=== PATIENT | male | born 1940 | race Caucasian/White ===

== ENCOUNTER 2016-03-03 03:22 | Inpatient (IN) | payer OTHER ==
[~2016-03-03] VITALS: Ht 177.8 cm; Wt 136.1 kg
[2016-03-03] VITALS (7 sets, daily range): BP systolic 106–152; BP diastolic 57–76
--- NOTE | ~2016-03-03 | EKG ---
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
--- NOTE | ~2016-03-03 | CATHLAB ---
[facility] [place] [address] INVASIVE PROCEDURE REPORT Name: MITCHMARJAN NICOLE Room #: 217-P [facility] IN M.R.#: [id number] Admission: 03/03/16 Attend Phys: Dg Wan, Discharge: Date of : 42 Date of Service: 03/03/16 1330 Report #: [id number] THIS REPORT FOR: //name// CC: Dg LUND PROCEDURES: Left ventriculography, coronary angiography, abdominal aortography, PTCA stent to the RCA, drug-eluting, bilateral lower extremity runoff. DESCRIPTION OF PROCEDURE: The patient brought to the catheterization lab having accelerating anginal pattern, here in atrial fibrillation, which has resolved. Had arm pain and chest pain consistent with anginal symptoms. This was during the night. Troponin was 0.05. Also had a right lower extremity diabetic foot ulcer, which is healing. Right groin prepped and draped in sterile manner and 1% Xylocaine was used for local anesthesia and Versed was given for conscious sedation. A 6-Mongolian sheath in the right femoral artery. Straight pigtail catheter performed a single JC ventriculogram and LV function was preserved and AP aortogram. No aneurysm. Renal arteries were patent with mild disease. FL4 for the left coronary system, FR4 for the right coronary system and FR4 for a BAILEY to LAD graft. There was evidence of a high grade . There was a dominant right. This was a single-vessel runoff with a BAILEY to an LAD, which was occluded proximally, 30% and 40% irregularities in the circ OM and the diagonal system and in the large dominant right, previously placed proximal stent and the distal portion of the stent severely diseased within the mid vessel and just distal to this is 99% long lesion. It is a dominant vessel. I utilized a JR4 guide, a 0.014 Luge wire and a 2.5 x 20 balloon to dilate overlapping this area; some difficulty initially crossing. I then exchanged over the wire and magnet for a 2.75 x 30 Resolute drug-eluting stent, deployed at 14 atmospheres and post-dilated 20 atmospheres within the stent for 30 seconds. Final result was excellent, with ADRIENNE grade 3 flow. No dissection or thrombus formation. Stent appeared to be well opposed with those high atmospheres. I then utilized a JR4 guide to engage the left iliac system because of the history of diabetic disease and the right femoral sheath was also injected. There was wide patency of the iliofemoral system. SFA was widely patent and giving rise to a 3-vessel runoff with mild disease proximally. I did not go below the mid calf. No significant occlusive disease noted to that point. The patient tolerated well. Vascular sheath was secured. Heparin and Integrilin boluses were given and Effient p.o. load for the drug-eluting coronary stent. Stable upon transfer, without hematoma formation, to CV holding. IV Lopressor was given for some borderline tachycardia, but he has converted from AFib to sinus rhythm. HEMODYNAMICS: Aortic 126/74, LV 130/24. IMPRESSION: 1. Percutaneous transluminal coronary angioplasty stent of high-grade long mid [facility] [address] [place] [address] INVASIVE PROCEDURE REPORT Name: MARJAN MEYER Room #: 217-P [facility] IN M.R.#: [id number] Admission: 03/03/16 Attend Phys: Dg Wan, Discharge: Date of : 42 Date of Service: 03/03/16 1330 Report #: [id number] right coronary artery lesion, dominant vessel, distal in-stent restenosis, with the high-grade lesion not previously stented with a 2.75 x 30 Resolute stent, drug eluting to 3.4 mm in size, ADRIENNE grade 3 flow. 2. Left main with mild disease. 3. Left anterior descending proximally occludes. 4. The left internal mammary artery to the left anterior descending was intact and extends around the apex with well-preserved vessel. 5. Diagonal system with 30% irregularities. 6. Circumflex obtuse marginal with 30%-40% proximal circumflex and obtuse marginal lesions. 7. Normal left ventricular size and systolic function, ejection fraction 50%-55%. 8. Abdominal aorta intact. 9. Bilateral common iliacs are mildly diseased. 10. Bilateral common femoral with 20%-30% irregularities. 11. Bilateral superficial femoral arteries have mild calcification and plaquing, but no occlusive disease, giving rise to 3-vessel runoff at the knee. I did not evaluate the significant below-knee disease, but it appears to be patent proximally. 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 load was given. He is hemodynamically stable and pain-free upon transfer. <ELECTRONICALLY SIGNED> By: Dg Wan MD, [facility] 03/04/16 0935 1330 1420 Dg Wan MD, FACC /nt
--- NOTE | ~2016-03-03 | EKG ---
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1940 Requested By: Dg Wan Order Number: [id number] MD: Juan F Ortiz Measurements Intervals [place] Rate: 73 P: 60 [place]: 150 QRS: 81 QRSD: 92 T: 97 QT: 393 QTc: 433 Interpretive Statements Sinus rhythm Borderline right axis deviation Low voltage, precordial leads Nonspecific T abnormalities, lateral leads Compared to ECG 03/03/2016 03:28:48 No significant changes Electronically Signed On 03-03-2016 17:08:32 TURN LASTER by Juan F Ortiz [email or web address] <ELECTRONICALLY SIGNED> By: Juan F Ortiz MD 03/03/16 1708 1400 1400 Juan F Ortiz MD /EPI
--- NOTE | ~2016-03-03 | H ---
[facility] [place] [address] HISTORY AND PHYSICAL Name: MARJAN MEYER Room #: 217-P ADM IN M.R.#: [id number] Admission: 03/03/16 Attend Phys: Dg Wan MD, Discharge: Date of : 42 Report #: [id number] THIS REPORT FOR: //name// CC: Dg Turcios Parker LUND DATE OF SERVICE: 03/03/2016 HISTORY OF PRESENT ILLNESS: The patient is a 75-year-old male well known to myself. Admitted with awakening last night with some substernal chest discomfort, but more of a left arm discomfort, associated with some shortness of breath and irregular heartbeat. It sounds like someone came to the emergency room and found to have AFib, rapid ventricular response and some relief with nitro from the arm pain. He had been feeling well otherwise, but having some progressive fatigue, shortness of breath. His bypass surgery dates back to 1999; it looks like there was a stent to the RCA prior to the bypass and then possibly just a single-vessel bypass which was a BAILEY to an LAD, but I will need to try to find old records. This is now 15-16 years ago. He has preserved LV function. I have a negative nuclear stress test done in our office in November 2014. He has been compliant with his medications, but always has fought this weight and was considering [employer]. He has had preserved LV function. He has been compliant with his medications, just not compliant with diet or exercise. The EKG had AFib with RVR, rates improved, nonspecific ST abnormalities are noted but no certainly acute ____ injury. MEDICATIONS: Have been aspirin, fish oil, vitamin D, metformin 1000 mg b.i.d., glipizide 2.5 mg, gabapentin, Lipitor 80 mg, Bystolic 10 mg and fenofibrate which we did discontinue last visit. PAST MEDICAL HISTORY: Positive for coronary artery disease with CABG and stent, hypertension, hypercholesterolemia, obesity, DJD, carotid disease, hypertriglyceridemia, COPD, nasal surgery and knee replacement, bilateral. FAMILY HISTORY: Strongly positive including a brother, father and mother all with premature CAD. SOCIAL HISTORY: Prior tobacco over 10 years ago. No significant alcohol. Moderate caffeine. He is . He is retired. ALLERGIES: CODEINE, EPINEPHRINE AND NIACIN. REVIEW OF SYSTEMS: Negative except for progressive dyspnea and some nocturia. [facility] [address] [place] [address] HISTORY AND PHYSICAL Name: MARJAN MEYER Room #: 217-P ADM IN M.R.#: [id number] Admission: 03/03/16 Attend Phys: Dg Wan MD, Discharge: Date of : 42 Report #: [id number] LABORATORY DATA: Potassium is 4.3, creatinine 1.0. Troponin was 0.05. H and H are 13.3 and 40.1 and white count was 12.9. RADIOLOGICAL STUDIES: Chest x-ray does reveal some questionable cephalization. PHYSICAL EXAMINATION: HEMODYNAMICS: Pulse is 80s and irregular, blood pressure 106/60. HEENT: Eyes reveal xanthelasmas. Pharynx is clear. NECK: Shows preserved upstrokes without JVD or bruits. LUNGS: A few basilar crackles are noted, but diminished breath sounds. CARDIOVASCULAR: Irregularly irregular, S1, S2 distant. ABDOMEN: Obese, nontender. EXTREMITIES: Reveal trace of edema with venous stasis, mild. NEUROLOGIC: Intact. MUSCULOSKELETAL: No gross joint deformity. ASSESSMENT: 1. Accelerating angina. 2. Hypertension. 3. Hypercholesterolemia. 4. Recent-onset atrial fibrillation. 5. Obesity. 7. Chronic obstructive pulmonary disease. RECOMMENDATIONS AND PLAN: Currently IV is out, rate is controlled. Continue with Bystolic, beta-gin, an aspirin and a statin. We will proceed to the catheterization lab to delineate the anatomy. Based on his risk factors, obesity and some noncompliance and the need to delineate this anatomy and then we will treat the AFib accordingly with anticoagulation and rate control. We will repeat an echo Doppler. <ELECTRONICALLY SIGNED> By: Dg Wan MD, FACC 03/04/16 0936 1019 1045 Dg Wan MD, FACC /nt
--- NOTE | ~2016-03-03 | EKG ---
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[place] : 1940 Requested By: Nichol Walsh Order Number: [id number] MD: Juan F Ortiz Measurements Intervals [place] Rate: 147 P: 123 [place]: 97 QRS: 76 QRSD: 82 T: 89 QT: 315 QTc: 493 Interpretive Statements Supraventricular tachycardia, possible atrial flutter Low voltage, precordial leads Borderline T wave abnormalities No previous ECG available for comparison Electronically Signed On 03-03-2016 8:23:39 CMO & PRESIDENT by Juan F Ortiz [email or web address] <ELECTRONICALLY SIGNED> By: Juan F Ortiz MD 03/03/16 0823 7 Juan F Ortiz MD /ANGEL
--- NOTE | ~2016-03-03 | 2DMMODE ---
[facility] [place] [address] 2 D/M-MODE ECHOCARDIOGRAM Name: MITCHMARJAN NICOLE Room #: 217-P [facility] IN M.R.#: [id number] Admission: 03/03/16 Attend Phys: Dg Wan, Discharge: Date of : 42 Date of Service: 03/03/16 1538 Report #: [id number] THIS REPORT FOR: //name// Transthoracic Echocardiography Ordering physician: Maria Luisa Barros Referring physician: Maria Luisa Barros Supervisor Sanding: TAMMIE Bryant Indications/History: CAD, CABG, Chest pain, HTN, HLP. BP: 121 / HR: 74bpm Height: 70in Weight: 284.4lb 54 Study data: M-mode, complete 2D, complete spectral Doppler, and color Doppler. Location: Bedside. Routine. Image quality was adequate. The study was technically limited due to poor acoustic window availability, restricted patient mobility, and body habitus. Intravenous contrast (Definity) was administered. 2D measurements Normal Normal LVID ED 44.1mm 36-57 IVS ED 10.1mm 6-11 LVID ES 31.8mm 23-40 LVPW ED 9.7mm 6-11 LA volume index 16-28 AoRoot diam ED 29.3mm 21-37 LVOT diameter 19mm 18-23 Findings: Left ventricle: The cavity size was normal. Wall thickness was normal. Systolic function was normal. The estimated ejection fraction was in the range of 50% to 55%. Wall motion was normal. Right ventricle: The cavity size was normal. Systolic function was normal. Right atrium: The atrium was dilated. Left atrium: The atrium was dilated. Aortic valve: Not well visualized. Mildly sclerotic leaflets. Doppler: There was no stenosis. No regurgitation. Peak velocity: 125.7cm/s (S). [facility] [address] [place] [address] 2 D/M-MODE ECHOCARDIOGRAM Name: MARJAN MEYER Room #: 217-P [facility] IN Marg[place]#: [id number] Admission: 03/03/16 Attend Phys: Dg EricksonSalazar Soco, Discharge: Date of : 42 Date of Service: 03/03/16 1538 Report #: [id number] Mitral valve: The valve appears to be grossly normal. Doppler: There was no evidence for stenosis. Mild regurgitation. Peak E-wave velocity: 100.9cm/s. Peak gradient: 4.1mm Hg (D). Peak A-wave velocity: 52.4cm/s. Tricuspid valve: Structurally normal valve. Doppler: There was no evidence for stenosis. Mild regurgitation. Regurgitant peak velocity: 299.9cm/s. Peak RV-RA gradient: 36mm Hg (S). Pulmonic valve: Structurally normal valve. Doppler: There was no evidence for stenosis. Trivial regurgitation. Pericardium: There was no pericardial effusion. Aorta: Aortic root: The aortic root was normal in size. Pulmonary artery: Systolic pressure was estimated to be 45mm Hg. Diastolic function: The study is not technically sufficient to allow evaluation of LV diastolic function. Systemic veins: Inferior vena cava: The vessel was normal in size; the respirophasic diameter changes were in the normal range (= 50%). Conclusions Technically difficult study. 1. Left ventricle: Systolic function was normal. The estimated ejection fraction was in the range of 50% to 55%. Wall motion was normal. 2. Aortic valve: Not well visualized. Mildly sclerotic leaflets. There was no stenosis. No regurgitation. 3. Mitral valve: The valve appears to be grossly normal. Mild regurgitation. 4. Pericardium, extracardiac: There was no pericardial effusion. 5. Pulmonary arteries: Systolic pressure was estimated to be 45mm Hg. <ELECTRONICALLY SIGNED> By: Heber Byrd MD, [facility] 03/03/16 1636 1538 35 Heber Byrd MD, [facility] /[place]
[~2016-03-03 03:22] MED LIST: ALLOPURINOL 30300 M2 PO; ASPIRIN81 M2 PO; ATENOLOL 50MG T50 M1 PO; CALCIUM STOOL240 MG PO; COUMADIN 5 MG TA5 M1 PO; ENOXAPARIN150 MG/11 SUBQ; GLIPIZIDE 5 MG T5 MG PO; GLUCOPHAGE1000 MG PO; LIVALO4 MG PO; MOBIC15 MG PO; MULTI VITAMIN; PERCOCET 7.5-31 EACH PO; TRILIPIX135 MG PO
[2016-03-03] MEDS ORDERED: GLIPIZIDE 10 MG10 MG PO (03:34)
[2016-03-03] MEDS ORDERED: ASPIRIN325 PO (03:37)
[2016-03-03] MEDS ORDERED: PIOGLITAZONE15 MG PO (03:39)
[2016-03-03] MEDS ORDERED: CYMBALTA30 MG PO (03:39)
[2016-03-03 03:40] LABS: ABSOLUTE NEUTROPHILS 9.3 thou/uL (1.4-8.2); BASOPHILS 0.6 % (0.0-2.0); HEMATOCRIT 40.1 % (42.0-52.0); HEMOGLOBIN 13.3 gm/dL (14.0-18.0); LYMPHOCYTES 17.6 % (24.0-44.0); MCH 29.7 pg (26.0-34.0); MCHC 33.3 % (28.0-37.0); MCV 89.3 fL (80.0-100.0); MONOCYTES 7.3 % (1.0-8.0); PLATELET COUNT 204 thou/uL (150-400); POLYS 72.5 % (36.0-66.0); RBC 4.49 mil/uL (4.50-6.00); WBC 12.9 thou/uL (4.0-11.0)
[2016-03-03] MEDS ORDERED: AVAPRO300 MG PO (03:40)
[2016-03-03] MEDS ORDERED: NEURONTIN 300300 M1 PO (03:41)
[2016-03-03] MEDS ORDERED: BYSTOLIC 5 MG5 M1 PO (03:41)
[2016-03-03] MEDS ORDERED: LIPITOR 20 MG T20 M1 PO (03:41)
[2016-03-03] MEDS ORDERED: CO Q-10100 MG PO (03:41)
[2016-03-03] MEDS ORDERED: FISH OIL 1,0001 EAC5 PO (03:42)
[2016-03-03] MEDS ORDERED: MYRBETRIQ50 MG PO (03:42)
[2016-03-03] MEDS ORDERED: VITAMIN D2000 UNIT PO (03:42)
[2016-03-03] MEDS ORDERED: ALBUTEROL2.5 MG/0.5 INH (03:43)
[2016-03-03] MEDS ORDERED: BREO ELLIPTA 11 EACH IH (03:43)
[2016-03-03] MEDS ORDERED: SPIRIVA INH (03:43)
[2016-03-03 03:44] LABS: MANUAL DIFF NO
[2016-03-03] MEDS ORDERED: FLOMAX0.4 MG PO (03:44)
[2016-03-03] MEDS ORDERED: LASIX 40 MG TAB40 M2 PO (03:44)
[2016-03-03] MEDS ORDERED: KLOR-CON 1010 MEQ PO (03:45)
[2016-03-03 03:46] LABS: CALCIUM 9.1 mg/dL (8.5-10.1); POTASSIUM 4.3 mmol/L (3.5-5.1)
[2016-03-03 03:55] LABS: APTT 28.9 Seconds (24.5-32.8); INR 1.1; PROTIME 11.4 Seconds (9.3-11.4); TROPONIN-I 0.05 ng/mL (<0.04-0.07)
[2016-03-03 04:06] LABS: LARGE PLATELETS FEW
[2016-03-04 00:03] VITALS: BP 133/70
[2016-03-04 03:59] LABS: HEMATOCRIT 39.2 % (42.0-52.0); HEMOGLOBIN 12.9 gm/dL (14.0-18.0); MCH 29.7 pg (26.0-34.0); MCHC 32.8 % (28.0-37.0); MCV 90.6 fL (80.0-100.0); RBC 4.33 mil/uL (4.50-6.00); WBC 15.6 thou/uL (4.0-11.0)
[2016-03-04 04:05] LABS: CREATININE 1.1 mg/dL (0.6-1.3); POTASSIUM 4.5 mmol/L (3.5-5.1); TROPONIN-I 0.13 ng/mL (<0.04-0.07)
[2016-03-04 04:13] LABS: CHOLESTEROL 147 mg/dL (<200); HDL CHOLESTEROL 33 mg/dL (>40); LDL CHOLESTEROL 86 mg/dL (<100); TC:HDL 4.5 Ratio (Not establshd); TRIGLYCERIDE 144 mg/dL (<150); VLDL 29 mg/dL (<40)
[2016-03-04 04:15] LABS: SERUM ASSESSMENT Clear
[2016-03-04 04:43] VITALS: BP 148/79
[2016-03-04] MEDS ORDERED: LIPITOR 20 MG T20 M1 PO (07:47)
[2016-03-04] MEDS ORDERED: ASPIRIN325 PO (07:47)
[2016-03-04] MEDS ORDERED: EFFIENT10 MG PO (07:47)
[2016-03-04] MEDS ORDERED: ATORVASTATIN CA40 MG PO (07:49)
[2016-03-04] MEDS ORDERED: BYSTOLIC 5 MG5 M1 PO (07:49)
[2016-03-04] MEDS ORDERED: NITROGLYCERIN0.4 MG SUBLING (07:49)
[2016-03-04 08:14] VITALS: BP 139/70
[2016-03-04 09:42] VITALS: BP 139/70
[2016-03-04 11:48] VITALS: BP 139/70
== END 2016-03-04 11:35 | disposition home or self-care (01) | DRG 246 ==
LOC: ER 03:22 → 3N 04:15 → EROBS 04:15 → 3N 07:36 → 2N 13:53
PROVIDERS: Emergency Medicine; Internal Medicine Cardiovascular Disease
PROC: 4A023N7 Measurement of Cardiac Sampling and Pressure, Left Heart, Percutaneous Approach (ICD-10-PCS; principal; 2016-03-03)
PROC: 027034Z Dilation of Coronary Artery, One Artery with Drug-eluting Intraluminal Device, Percutaneous Approach (ICD-10-PCS; 2016-03-03)
PROC: B2111ZZ Fluoroscopy of Multiple Coronary Arteries using Low Osmolar Contrast (ICD-10-PCS; 2016-03-03)
PROC: B2151ZZ Fluoroscopy of Left Heart using Low Osmolar Contrast (ICD-10-PCS; 2016-03-03)
PROC: B4101ZZ Fluoroscopy of Abdominal Aorta using Low Osmolar Contrast (ICD-10-PCS; 2016-03-03)
DX: I25.119 Atherosclerotic heart disease of native coronary artery with unspecified angina pectoris (principal); I50.33 Acute on chronic diastolic (congestive) heart failure; Z68.41 Body mass index [BMI] 40.0-44.9, adult; I48.91 Unspecified atrial fibrillation; I10 Essential (primary) hypertension; J44.9 Chronic obstructive pulmonary disease, unspecified; M19.90 Unspecified osteoarthritis, unspecified site; E66.01 Morbid (severe) obesity due to excess calories; E11.51 Type 2 diabetes mellitus with diabetic peripheral angiopathy without gangrene; I65.29 Occlusion and stenosis of unspecified carotid artery; Z96.653 Presence of artificial knee joint, bilateral; E78.00 Pure hypercholesterolemia, unspecified; Z87.442 Personal history of urinary calculi; Z79.899 Other long term (current) drug therapy; Z79.82 Long term (current) use of aspirin; Z88.8 Allergy status to other drugs, medicaments and biological substances; Z88.1 Allergy status to other antibiotic agents; Z95.1 Presence of aortocoronary bypass graft; Z95.5 Presence of coronary angioplasty implant and graft; Z91.041 Radiographic dye allergy status; Z82.49 Family history of ischemic heart disease and other diseases of the circulatory system
CPT/HCPCS: 10081

== ENCOUNTER 2017-06-26 13:27 | Inpatient (IN) | payer OTHER ==
[~2017-06-26] VITALS: Ht 177.8 cm; Wt 117.9 kg
--- NOTE | ~2017-06-26 | EKG ---
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 : 1940 Requested By: Moy Gallego Order Number: [id number] MD: Yovani Calles Measurements Intervals [place] Rate: 75 P: 18 SD: 156 QRS: 79 QRSD: 70 T: 147 QT: 483 QTc: 540 Interpretive Statements Sinus rhythm Low voltage, precordial leads Nonspecific T abnormalities, lateral leads Prolonged QT interval Compared to ECG 03/04/2016 07:05:38 T-wave abnormality now present Prolonged QT interval now present Electronically Signed On 06-27-2017 7:33:21 CDT by Yovani Calles [email or web address] <ELECTRONICALLY SIGNED> By: Yovani Calles MD 06/27/17 0733 1440 1440 Yovani Calles MD /[facility]
[~2017-06-26 13:27] MED LIST changes: +ALBUTEROL2.5 MG/0.5 INH; +ASPIRIN325 PO; +ATORVASTATIN CA40 MG PO; +AVAPRO300 MG PO; +BREO ELLIPTA 11 EACH IH; +BYSTOLIC 5 MG5 M1 PO; +CO Q-10100 MG PO; +CYMBALTA30 MG PO; +EFFIENT10 MG PO; +FISH OIL 1,0001 EAC5 PO; +FLOMAX0.4 MG PO; +GLIPIZIDE 10 MG10 MG PO; +KLOR-CON 1010 MEQ PO; +LASIX 40 MG TAB40 M2 PO; +LIPITOR 20 MG T20 M1 PO; +MYRBETRIQ50 MG PO; +NEURONTIN 300300 M1 PO; +NITROGLYCERIN0.4 MG SUBLING; +PIOGLITAZONE15 MG PO; +SPIRIVA INH; +VITAMIN D2000 UNIT PO
[2017-06-26 14:46] VITALS: BP 106/63
[2017-06-26 14:52] VITALS: BP 106/63
[2017-06-26 14:53] LABS: ANION GAP 10 mmol/L (7-16); BUN 38 mg/dL (7-18); CHLORIDE 100 mmol/L (98-107); CO2 25 mmol/L (21-32); CREATININE 2.8 mg/dL (0.7-1.3); GLUCOSE 136 mg/dL (74-106); POTASSIUM 4.4 mmol/L (3.5-5.1); SODIUM 135 mmol/L (136-145)
[2017-06-26 15:01] LABS: ABSOLUTE NEUTROPHILS 9.7 thou/uL (1.4-8.2); BASOPHILS 0.5 % (0.0-2.0); EOSINOPHILS 1.9 % (0.0-3.0); HEMATOCRIT 37.1 % (42.0-52.0); HEMOGLOBIN 12.5 gm/dL (14.0-18.0); LYMPHOCYTES 7.5 % (24.0-44.0); MCH 30.5 pg (26.0-34.0); MCHC 33.6 g/dL (28.0-37.0); MCV 90.7 fL (80.0-100.0); MONOCYTES 5.3 % (1.0-8.0); PLATELET COUNT 155 thou/uL (150-400); POLYS 84.8 % (36.0-66.0); RBC 4.09 mil/uL (4.50-6.00); WBC 11.4 thou/uL (4.0-11.0)
[2017-06-26 15:02] LABS: ALBUMIN 3.9 g/dL (3.4-5.0); SGOT 18 U/L (15-37); SGPT 24 U/L (30-65); TOTAL BILIRUBIN 0.5 mg/dL (<0.1-1.0); TOTAL PROTEIN 7.1 g/dL (6.4-8.2); TROPONIN-I < 0.04 ng/mL (<0.06)
[2017-06-26 15:56] LABS: URINE BILIRUBIN NEGATIVE (Negative); URINE BLOOD NEGATIVE (Negative); URINE CLARITY CLEAR; URINE COLOR YELLOW; URINE GLUCOSE-RANDOM* TRACE (Negative); URINE KETONES NEGATIVE (Negative); URINE LEUKOCYTES-REFLEX NEGATIVE (Negative); URINE NITRITE-REFLEX NEGATIVE (Negative); URINE PROTEIN (DIPSTICK) NEGATIVE (Negative); URINE SPECIFIC GRAVITY 1.015 (1.005-1.035); URINE UROBILINOGEN 0.2 E.U./dl (0.2-1.0)
[2017-06-26 18:10] VITALS: BP 111/64
[2017-06-26 18:19] VITALS: BP 101/52
[2017-06-26 20:04] VITALS: BP 93/69
[2017-06-26] MEDS ORDERED: BACTRIM DS TAB1 EACH PO (21:18)
[2017-06-27 00:37] VITALS: BP 115/58
[2017-06-27 04:04] VITALS: BP 132/65
[2017-06-27 05:47] LABS: HEMATOCRIT 34.5 % (42.0-52.0); HEMOGLOBIN 11.9 gm/dL (14.0-18.0); MCH 31.2 pg (26.0-34.0); MCHC 34.5 g/dL (28.0-37.0); MCV 90.6 fL (80.0-100.0); RBC 3.81 mil/uL (4.50-6.00); RDW 14.2 % (10.5-14.5); WBC 10.8 thou/uL (4.0-11.0)
[2017-06-27 06:03] LABS: CALCIUM 8.6 mg/dL (8.5-10.1); POTASSIUM 4.6 mmol/L (3.5-5.1)
[2017-06-27 06:05] LABS: CREATININE 1.8 mg/dL (0.7-1.3)
[2017-06-27 08:00] VITALS: BP 127/68
[2017-06-27 16:00] VITALS: BP 170/73
[2017-06-27 20:53] VITALS: BP 135/70
[2017-06-28 03:45] VITALS: BP 150/75
[2017-06-28 06:25] LABS: CALCIUM 8.8 mg/dL (8.5-10.1); POTASSIUM 4.7 mmol/L (3.5-5.1)
[2017-06-28 07:29] VITALS: BP 120/65
[2017-06-28 09:55] VITALS: BP 120/65
[2017-06-28 10:58] VITALS: BP 120/65
[2017-06-28 11:05] VITALS: BP 120/65
== END 2017-06-28 11:50 | disposition home or self-care (01) | DRG 682 ==
LOC: ER 13:27 → EROBS 16:18 → 4W 16:18 → ENTRNSPT 06-28 11:14 → EDTRNSPTSTS 06-28 11:48 → 4W 06-28 11:50
PROVIDERS: Hospitalist; Physician Assistant
DX: N17.9 Acute kidney failure, unspecified (principal); E43 Unspecified severe protein-calorie malnutrition; I10 Essential (primary) hypertension; E78.00 Pure hypercholesterolemia, unspecified; I25.10 Atherosclerotic heart disease of native coronary artery without angina pectoris; Z96.651 Presence of right artificial knee joint; I95.1 Orthostatic hypotension; R20.2 Paresthesia of skin; I48.2 Chronic atrial fibrillation; Z79.899 Other long term (current) drug therapy; Z95.1 Presence of aortocoronary bypass graft; Z95.5 Presence of coronary angioplasty implant and graft; Z87.442 Personal history of urinary calculi; Z88.8 Allergy status to other drugs, medicaments and biological substances; Z88.6 Allergy status to analgesic agent; Z88.1 Allergy status to other antibiotic agents; Z91.041 Radiographic dye allergy status; Z87.891 Personal history of nicotine dependence; Z68.37 Body mass index [BMI] 37.0-37.9, adult
CPT/HCPCS: 10045

== ENCOUNTER → 2019-08-11 | Outpatient (CLI) | payer OTHER ==
[~2019-08-11] MED LIST changes: +BACTRIM DS TAB1 EACH PO
== END ==
LOC: SJCVC 12:59 → SJCVCIMAG 12:59
PROVIDERS: ATTEND Internal Medicine Cardiovascular Disease
DX: R00.0 Tachycardia, unspecified (principal); R94.31 Abnormal electrocardiogram [ECG] [EKG]; I25.810 Atherosclerosis of coronary artery bypass graft(s) without angina pectoris; E11.9 Type 2 diabetes mellitus without complications; E78.00 Pure hypercholesterolemia, unspecified; G47.33 Obstructive sleep apnea (adult) (pediatric); I73.9 Peripheral vascular disease, unspecified; J44.9 Chronic obstructive pulmonary disease, unspecified; R60.9 Edema, unspecified; K21.9 Gastro-esophageal reflux disease without esophagitis; E66.9 Obesity, unspecified; Z79.82 Long term (current) use of aspirin; Z79.899 Other long term (current) drug therapy; Z82.49 Family history of ischemic heart disease and other diseases of the circulatory system; Z87.891 Personal history of nicotine dependence; Z95.1 Presence of aortocoronary bypass graft

== ENCOUNTER → 2019-08-21 | Outpatient (CLI) | payer OTHER | LOC: HYPER 14:29 | PROVIDERS: ATTEND Emergency Medicine | DX: I87.2 Venous insufficiency (chronic) (peripheral) (principal); E11.628 Type 2 diabetes mellitus with other skin complications; L30.9 Dermatitis, unspecified; R60.0 Localized edema; E11.51 Type 2 diabetes mellitus with diabetic peripheral angiopathy without gangrene; J43.9 Emphysema, unspecified; E78.5 Hyperlipidemia, unspecified; I10 Essential (primary) hypertension; N40.0 Benign prostatic hyperplasia without lower urinary tract symptoms; E78.00 Pure hypercholesterolemia, unspecified; I25.810 Atherosclerosis of coronary artery bypass graft(s) without angina pectoris; E66.9 Obesity, unspecified; Z68.39 Body mass index [BMI] 39.0-39.9, adult; Z87.891 Personal history of nicotine dependence; Z79.84 Long term (current) use of oral hypoglycemic drugs; Z79.82 Long term (current) use of aspirin; Z98.84 Bariatric surgery status; Z98.49 Cataract extraction status, unspecified eye; Z95.1 Presence of aortocoronary bypass graft; Z96.659 Presence of unspecified artificial knee joint ==

== ENCOUNTER → 2019-08-24 | Outpatient (CLI) | payer OTHER | LOC: SJCVCIMAG | PROVIDERS: ATTEND Internal Medicine Cardiovascular Disease | DX: R60.9 Edema, unspecified (principal); M79.661 Pain in right lower leg; M79.662 Pain in left lower leg ==

== ENCOUNTER → 2019-08-31 | Outpatient (CLI) | payer OTHER | LOC: HYPER 07:53 | PROVIDERS: ATTEND Emergency Medicine | DX: I87.2 Venous insufficiency (chronic) (peripheral) (principal); R60.0 Localized edema; L30.9 Dermatitis, unspecified; E11.51 Type 2 diabetes mellitus with diabetic peripheral angiopathy without gangrene; E66.01 Morbid (severe) obesity due to excess calories; E78.5 Hyperlipidemia, unspecified; E78.00 Pure hypercholesterolemia, unspecified; I25.810 Atherosclerosis of coronary artery bypass graft(s) without angina pectoris; I10 Essential (primary) hypertension; J43.9 Emphysema, unspecified; Z68.39 Body mass index [BMI] 39.0-39.9, adult; Z79.84 Long term (current) use of oral hypoglycemic drugs; Z79.82 Long term (current) use of aspirin; Z87.891 Personal history of nicotine dependence; Z96.659 Presence of unspecified artificial knee joint ==

== ENCOUNTER → 2019-10-25 | Outpatient (CLI) | payer OTHER | LOC: SJCVCIMAG 08:36 | PROVIDERS: ATTEND Internal Medicine Cardiovascular Disease | DX: I25.10 Atherosclerotic heart disease of native coronary artery without angina pectoris (principal); I10 Essential (primary) hypertension; E11.9 Type 2 diabetes mellitus without complications; E78.00 Pure hypercholesterolemia, unspecified; I73.9 Peripheral vascular disease, unspecified; Z95.1 Presence of aortocoronary bypass graft; Z79.899 Other long term (current) drug therapy; Z87.891 Personal history of nicotine dependence ==

== ENCOUNTER → 2020-05-22 | Outpatient (CLI) | payer OTHER | LOC: SJCVC 15:24 | PROVIDERS: ATTEND Internal Medicine Cardiovascular Disease | DX: R00.0 Tachycardia, unspecified (principal); I25.810 Atherosclerosis of coronary artery bypass graft(s) without angina pectoris; I10 Essential (primary) hypertension; E78.00 Pure hypercholesterolemia, unspecified; J44.9 Chronic obstructive pulmonary disease, unspecified; E11.9 Type 2 diabetes mellitus without complications; I77.9 Disorder of arteries and arterioles, unspecified; I87.2 Venous insufficiency (chronic) (peripheral); K21.9 Gastro-esophageal reflux disease without esophagitis; E66.9 Obesity, unspecified; Z95.1 Presence of aortocoronary bypass graft; Z88.8 Allergy status to other drugs, medicaments and biological substances; Z79.82 Long term (current) use of aspirin; Z79.4 Long term (current) use of insulin; Z87.891 Personal history of nicotine dependence; Z82.49 Family history of ischemic heart disease and other diseases of the circulatory system; Z79.899 Other long term (current) drug therapy ==